=== PATIENT | male | born 1995 | race Caucasian/White ===

== ENCOUNTER 2016-05-19 13:14 | Inpatient (IN) | payer OTHER ==
[~2016-05-19] VITALS: Ht 170.2 cm; Wt 71.7 kg
--- NOTE | 2016-05-19 13:19 | NUR ---
PT [id number] FROM HOME: S/P POSSIBLE SEIZURE. NO Hx OF SEIZURES. DENIES ANY PAIN. PLACED ON MONITOR. AWAITING MD ORDER.
--- NOTE | 2016-05-19 13:19 | NUR ---
PT HAS LAC #18 ALREADY PRIOR ARRIVING AT ER
--- NOTE | 2016-05-19 13:38 | NUR ---
PT TAKEN TO CT
[2016-05-19] MEDS ORDERED: LORAZEPAM 1 MG TABLET ONE (13:56)
[2016-05-19 13:59] LABS: BASOPHILS % (AUTO) 0.2 % (0.0-2.0); EOSINOPHILS % (AUTO) 0.1 % (0.0-6.0); HEMATOCRIT 48 % (39-51); HEMOGLOBIN 16.6 g/dL (13.5-17.5); LYMPHOCYTES # (AUTO) 0.6 /CMM (0.8-4.8); LYMPHOCYTES % (AUTO) 5.5 % (20.0-44.0); MEAN CORPUSCULAR HEMOGLOBIN 30 PG (26.0-33.0); MEAN CORPUSCULAR HGB CONC 35 g/dl (31.0-36.0); MEAN CORPUSCULAR VOLUME 88 fL (80-96); MONOCYTES # (AUTO) 0.7 /CMM (0.1-1.30); NEUTROPHILS # (AUTO) 10.5 /CMM (1.8-8.9); NEUTROPHILS % (AUTO) 88.2 % (43.0-81.0); PLATELET COUNT (AUTO) 405 /CMM (150-450); RDW COEFFICIENT OF VARIATION 13.2 (11.5-15.0); WHITE BLOOD COUNT (AUTO) 11.8 K/uL (4.3-11.0)
[2016-05-19] MEDS ORDERED: LORAZEPAM 1 MG TABLET PO ONE (14:00)
--- NOTE | 2016-05-19 14:10 | NUR ---
CALLED NURSING SUP. FOR TELE BED
[2016-05-19] MEDS ORDERED: DILT30TA2 PO (14:11)
[2016-05-19 14:14] LABS: CALCIUM, SERUM 9.3 mg/dL (8.5-10.1); CARBON DIOXIDE 23 mmol/L (21-32); CHLORIDE 100 mmol/L (98-107); CREATININE 1.2 mg/dL (0.6-1.3); GFR 76 mL/min (>60); GLUCOSE 160 mg/dL (74-106); SODIUM SERUM 136 mmol/L (136-145); UREA NITROGEN, BLOOD 8 mg/dL (7-18)
[2016-05-19 14:16] LABS: ALCOHOL, BLOOD < 3 mg/dL (0-0)
[2016-05-19] MEDS ORDERED: IV SET PRIMARY PUMP SET 1 EA INFUS.SET MC ONE ×2 (14:23→17:13)
--- NOTE | 2016-05-19 14:26 | NUR ---
EPIC PAGED; DR DURBIN JUNIOR ANALYST
[2016-05-19] MEDS ORDERED: PHENYTOIN SODIUM IV 1,000 MG in IV NS 0.9% 100 ML IV ONE (14:30)
--- NOTE | 2016-05-19 15:14 | NUR ---
GAVE REPORT TO STANLEY VILLARREALFIELD SERVICE SPECIALIST [phone]
[2016-05-19] MEDS ORDERED: LEVETIRACETAM (500MG) 500 MG in IV NS 0.9% 100 ML IV SCH (15:30)
[2016-05-19] MEDS ORDERED: MORPHINE SULFATE INJ 2 MG/ML DISP.SYRIN IV PRN ×2 (15:30→15:45)
[2016-05-19] MEDS ORDERED: ACETAMINOPHEN 325 MG TABLET PO PRN ×2 (15:30→15:45)
[2016-05-19] MEDS ORDERED: MAGNESIUM HYDROXIDE 30 ML UDC PO PRN ×2 (15:30→15:45)
[2016-05-19] MEDS ORDERED: ZOLPIDEM TARTRATE 5 MG TABLET PO PRN ×2 (15:30→15:45)
[2016-05-19] MEDS ORDERED: ENOXAPARIN SODIUM 40 MG/0.4 ML DISP.SYRIN SQ SCH ×2 (15:30→15:45)
[2016-05-19] MEDS ORDERED: Z GUARD REMEDY 2 OZ OINT TP PRN ×2 (15:30→15:45)
[2016-05-19] MEDS ORDERED: HYDROCODONE/APAP 5/325MG 1 EACH TABLET PO PRN ×2 (15:30→15:45)
[2016-05-19] MEDS ORDERED: ONDANSETRON HCL/PF 4 MG/2 ML VIAL IVP PRN ×2 (15:30→15:45)
[2016-05-19] MEDS ORDERED: MAG HYDROX/AL HYDROX/SIMETH 30 ML UDC PO PRN ×2 (15:30→15:45)
--- NOTE | 2016-05-19 15:31 | NUR ---
TRANSFER PT VIA ACLS PROTOCOL. PT STABLE
--- NOTE | 2016-05-19 15:40 | NUR ---
SOLAR CONSULTANT NOTES PATIENT ADMITTED TO UNIT VIA GURNEY ALERT AND ORIENTED X 4 ACCOMPANIED BY ER STAFF AND PARENTS. PATIENT ADMIITED WITH PRIMARY DIAGNOSIS OF SEIZURE AND SIGNIFICANT DIAGNOSIS OF PALPITATION ALSO. NO KNOWN ALLERGY. TRANSFERRED PATIENT TO BED AND SEIZURE PRECAUTIONS IMPLEMENTED. ROUTINE ADMISSION DONE. ON ROOM AIR, TOLERATED WITH NO SIGNS OF SOB NOTED. SKIN ASSESSMENT DONE, PHOTOS TAKEN AND FILED TO CHART. NOTED WITH IV ACCESS TO LEFT AC G#18, INTACT AND PATENT. V/S CHECK AND WNL. BELONGINGS CHECKED, COUNTED AND FILED. CALL LIGHT KEPT WITHIN REACH, BED KEPT LOW AND LOCK WITH SIDE RAILS UP AND PADDED. ALL SAFETY MEASURES IMPLEMENTED. APPARENTLY PATIENT FORGET SOME RECENT EVENTS PER GIRLFRIEND. WILL CONTINUE TO MONITOR ACCORDINGLY.
[2016-05-19] MEDS: LEVETIRACETAM (500MG) 500 MG in IV NS 0.9% 100 ML IV SCH (17:19)
[2016-05-19] MEDS: ENOXAPARIN SODIUM 80 MG/0.8 ML DISP.SYRIN SQ SCH (17:37)
--- NOTE | 2016-05-19 19:30 | NUR ---
RN NOTES RECEIVED PT. AWAKE , SITTING ON THE EDGE OF THE BED WITH FAMILY AT BEDSIDE, A/OX4, ST ON TELE MONITOR HR-113, DENIES PAIN, NO SOB, CALL LIGHT WITHIN REACH, SIDERAILS UPX2, CONTINUE TO MONITOR
--- NOTE | 2016-05-19 19:33 | NUR ---
DENTAL ASSISTING INSTRUCTOR CLOSING NOTES PATIENT AWAKE IN BED WITH FAMILY AT BEDSIDE. ALERT AND ORIENTED X4. NO SEIZURE OR DISCOMFORTS NOTED SINCE ADMISSION. ALL DUE NEEDS AND CARE PROVIDED. DUE MEDS GIVEN ORDERED. CALL LIGHT WITHIN REACH. BED KEPT LOW. LOCKED WITH SIDE RAILS UP AND PADDED. ENDORSED TO HONEY GRADER AND BLENDER FOR CONTINUITY OF CARE. Addendum: 05/19/16 at 1944 by CHAPARRITA GRANT RN ADDENDUM: PATIENT PLACED ON TELE-MONITORING WITH READINGS OF SINUS TACHYCARDIA AND HR OF 120. NO COMPLAINTS OF PALPITATION OR CHEST PAIN VOICED. WILL CONTINUE TO MONITOR
[2016-05-19 19:34] LABS: PHENCYCLIDINE SCREEN,URINE NEGATIVE (NEGATIVE)
[2016-05-19 20:00] VITALS: BP 131/78
[2016-05-19 20:05] LABS: CANNABINOID, URINE POSITIVE (NEGATIVE)
[2016-05-20] VITALS: BP 139/88
[2016-05-20 04:00] VITALS: BP 124/79
[2016-05-20] MEDS: LEVETIRACETAM (500MG) 500 MG in IV NS 0.9% 100 ML IV SCH ×2 (05:19→17:00)
[2016-05-20] MEDS: ENOXAPARIN SODIUM 80 MG/0.8 ML DISP.SYRIN SQ SCH ×2 (05:20→17:08)
--- NOTE | 2016-05-20 06:29 | NUR ---
RN NOTES PT. IS AWAKE, DENIES PAIN, IV LINE PATENT , NO REDNESS OR SWOLLEN, NO SOB, MORNING CARE RENDERED, CALL LIGHT WITHIN REACH, SIDERAILS UPX2, PT. NEEDS ATTENDED
[2016-05-20 07:02] VITALS: BP 142/80
--- NOTE | 2016-05-20 07:15 | NUR ---
RIB PULLER INITIAL NOTES RECEIVED PATIENT IN BED, AWAKE. A/O X3. BREATHING EVEN AND NON LABORED. NO SOB NOTED. TELE MONITOR SINUS TACH. IV IN LEFT AC G20 PATENT AND INTACT, FLUSHES WELL. NO C/O PAIN AT THIS TIME. CALL LIGHT WITHIN REACH. WILL CONT TO MONITOR.
[2016-05-20] MEDS ORDERED: PANTOPRAZOLE 40 MG TABLET.DR PO SCH ×2 (07:30)
[2016-05-20 07:31] LABS: BASOPHILS % (AUTO) 0.3 % (0.0-2.0); EOSINOPHILS # (AUTO) 0.1 /CMM (0.0-0.7); EOSINOPHILS % (AUTO) 0.7 % (0.0-6.0); HEMATOCRIT 44 % (39-51); HEMOGLOBIN 15.1 g/dL (13.5-17.5); LYMPHOCYTES # (AUTO) 1.8 /CMM (0.8-4.8); LYMPHOCYTES % (AUTO) 16.3 % (20.0-44.0); MEAN CORPUSCULAR HEMOGLOBIN 30 PG (26.0-33.0); MEAN CORPUSCULAR HGB CONC 34 g/dl (31.0-36.0); MEAN CORPUSCULAR VOLUME 88 fL (80-96); MONOCYTES # (AUTO) 1.3 /CMM (0.1-1.30); MONOCYTES % (AUTO) 12.3 % (2.0-12.0); NEUTROPHILS # (AUTO) 7.6 /CMM (1.8-8.9); NEUTROPHILS % (AUTO) 70.4 % (43.0-81.0); PLATELET COUNT (AUTO) 342 /CMM (150-450); RED BLOOD CELL COUNT(AUTO) 5.02 MIL/uL (4.5-6.0); WHITE BLOOD COUNT (AUTO) 10.8 K/uL (4.3-11.0)
[2016-05-20 08:00] VITALS: BP 142/80
[2016-05-20 08:02] LABS: THYROID STIMULATING HORMONE 0.772 uIU/mL (0.358-3.74)
[2016-05-20 09:11] LABS: CREATININE 0.7 mg/dL (0.6-1.3); PHOSPHORUS 3.6 mg/dL (2.5-4.9); POTASSIUM 3.4 mmol/L (3.5-5.1)
--- NOTE | 2016-05-20 11:02 | NUR ---
PATIENT WILL BE NPO 4-6 HR FOR THE PROCEDURE-CT HEAD W CONTRAST. PATIENT IS AWARE. CONSENT SIGNED AND PLACE IN THE CHART.
[2016-05-20] MEDS ORDERED: GADOVERSETAMIDE 2.5 MMOL/5 ML VIAL IJ ONE (12:00)
[2016-05-20] MEDS ORDERED: GADOVERSETAMIDE 5 MMOL/10 ML VIAL IJ ONE (12:00)
--- NOTE | 2016-05-20 13:30 | NUR ---
PATIENT IS TAKEN TO RAD DEPT FOR MRI PROCEDURE ORDERED.
[2016-05-20 16:00] VITALS: BP 128/78
--- NOTE | 2016-05-20 16:00 | NUR ---
PATIENT IS TAKEN TO RAD DEPT FOR CT HEAD CONTRAST PROCEDURE ORDERED. CONSENT FORM IN THE CHART.
[2016-05-20] MEDS ORDERED: IOHEXOL-300 100 ML VIAL IV ONE (16:04)
[2016-05-20] MEDS ORDERED: IV NS 0.9% 250 ML IV ONE ×2 (16:04→17:28)
[2016-05-20] MEDS ORDERED: CT SWABBABLE VALVE TRANS SET 1 EA INFUS.SET MC ONE (16:04)
[2016-05-20] MEDS ORDERED: DOCUSATE SODIUM 100 MG CAPSULE PO SCH (17:00)
[2016-05-20] MEDS ORDERED: IV SET PRIMARY PUMP SET 1 EA INFUS.SET MC ONE ×2 (17:04→17:29)
--- NOTE | 2016-05-20 17:13 | NUR ---
HOME MEDICATION LISTED DILTIAZEM, REVIEWED WITH THE PATIENT, STATED HES NOT TAKING DILTIAZEM FOR LONG TIME, PER PATIENT DR. ORTEGA (PRIMARY DOCTOR) IS CARRANZA. PHARMACY INFORMED.
[2016-05-20] MEDS: POTASSIUM CL. PREMIX PERIPHER. 50 ML IV SCH ×2 (17:36→18:31)
--- NOTE | 2016-05-20 18:39 | NUR ---
MS RN CLOSING NOTES PATIENT IN BED, A/O X3 4. NO EPISODE OF SEIZURE DURING THE SHIFT. LOW POTASSIUM 3.4 SUPPLEMENTED ORDERED. NO C/O PAIN OR ANY DISCOMFORT. NOT IN DISTRESS. CALL LIGHT WITHIN REACH. WILL ENDORSE TO MAILROOM SUPERVISOR RN FOR CONTINUITY OF CARE.
--- NOTE | 2016-05-20 19:30 | NUR ---
RN NOTES RECEIVED PT AWAKE ON BED, A/OX3 FAMILY AT BEDSIDE, PT. WAS TELLING ME THAT HE IS GOING HOME TONIGHT BUT I EXPLAINED TO THE PT. THAT THERE' NO DISCHARGE ORDER YET BECAUSE THE PRIMARY DOCTOR NEEDS TO SPEAK FIRST TO DR. ELIZONDO AND DR. MERINO REGARDING PT. NEW ONSET SEIZURE BUT PT STILL INSISTING THAT HE WANTS TO GO HOME.. DAYSHIFT NURSE CAME AND ALSO EXPLAINED TO THE THE PT. THE SAME THING BUT PT DOOESN'T LISTEN TO OUR EXPLANATION
[2016-05-20 20:00] VITALS: BP 106/70
--- NOTE | 2016-05-20 20:30 | NUR ---
RN NOTES SPOKE TO SOMMER DASILVA-PABLO AND INFORMED HER THAT PT WANTS TO DO AMA EVEN THOUGH WE EXPLAINED TO HIM WELL TO HIS FAMILY NEGATIVE EFFECT OF DOING AMA
--- NOTE | 2016-05-20 20:50 | NUR ---
RN NOTES PT. LEFT WITH HIS FAMILY V/S STABLE, HEPLOCK WAS REMOVED
== END 2016-05-20 20:47 | disposition left against medical advice (07) | DRG 53 ==
LOC: ER 13:16 → TELE 16:16 → MED 05-20 10:36
PROVIDERS: ADMIT Family Medicine; ATTEND Family Medicine
DX: G40.909 Epilepsy, unspecified, not intractable, without status epilepticus (principal); D72.829 Elevated white blood cell count, unspecified; R82.99 Other abnormal findings in urine; Z87.820 Personal history of traumatic brain injury
CPT/HCPCS: 36415; 70450-TC; 70460-TC; 70553-TC; 80048-TC; 80305; 83735-TC; 84100-TC; 84443-TC; 85025-TC; 85378-TC; 87081-TC; A4606; A9579; G0480; J1165; J1650; J1953; J3480; J7030; J7050; Q9967; Z7610

== ENCOUNTER 2019-02-01 22:49 | Emergency (ER) | payer BC, OTHER ==
[~2019-02-01] VITALS: Ht 170.2 cm; Wt 74.8 kg
[~2019-02-01 22:49] MED LIST: DILT30TA2 PO
--- NOTE | 2019-02-01 23:05 | NUR ---
QAMAR FROM HOME. TO ER BED 11. AAOX4. NO RESP DISTRESS, BREATHING EVENA ND UNLABORED. BROUGHT IN FOR OVERDOSE. PER EMS REPORT, PT WAS FOUNF UNCONSCIOUS AT HOME. PT REPORTS THAT HE TOOK HEROIN TONIGHT. EMS GAVE PT NARCAN 2MG IM ON SCENE WHICK AWAKEN THE PT. PT OK SAT 98%. MD WAS AT BEDSIDE FOR EVAL.
[2019-02-01] MEDS ORDERED: IBUPROFEN 600 MG TABLET PO ONE (23:45)
[2019-02-01] MEDS ORDERED: ONDANSETRON 4 MG TAB.RAPDIS ONE (23:48)
--- NOTE | 2019-02-01 23:49 | NUR ---
PT C/O NAUSEA AND ABDOMINAL PAIN ON LUQ. MD MADE AWARE. VERBAL ORDER TO GIVE IBUPROPHEN 600MG PO X 1 DOSE AND ZOFRAN 4MG PO X 1 DOSE. NOTED AND CARRIED OUT
[2019-02-02] MEDS ORDERED: IBUPROFEN 600 MG TABLET PO ONE
[2019-02-02] MEDS ORDERED: ONDANSETRON 4 MG TAB.RAPDIS SL ONE
--- NOTE | 2019-02-02 00:26 | NUR ---
Patient discharged to home in stable condition. Written and verbal after care instructions given. Patient verbalizes understanding of instruction.IV removed. Catheter intact and site benign. Pressure and 4x4 applied to site. No bleeding noted. Pt ambulatory with a steady gait
[2019-02-02 00:27] VITALS: BP 136/90
== END 2019-02-02 00:27 | disposition home or self-care (01) ==
LOC: ER 22:50
DX: T40.1X1A Poisoning by heroin, accidental (unintentional), initial encounter (principal); Z79.899 Other long term (current) drug therapy; Y92.89 Other specified places as the place of occurrence of the external cause
CPT/HCPCS: 99283; Q0162

== ENCOUNTER 2019-02-12 00:32 | Emergency (ER) | payer OTHER ==
[~2019-02-12] VITALS: Ht 170.2 cm; Wt 77.1 kg
[2019-02-12 00:32] VITALS: BP 133/79
--- NOTE | 2019-02-12 00:35 | NUR ---
PT BIB EMS C/O HEROIN OVERDOSE. PT WAS GIVEN NARCAN 0.5MG BY EMS CURTAIN DRIER. PT AAOX4. PER EMS PT RESP 6/MIN. NAD NOTED. RESP EVEN AND UNLABORED. PT DENIES ANY PAIN AT THIS TIME. PT ON MONITOR IN BED 4 AWAITING MD WYNN. WILL CONTINUE TO MONITOR.
--- NOTE | 2019-02-12 00:36 | NUR ---
PT DENIES SI, HI
--- NOTE | 2019-02-12 00:49 | NUR ---
PT WAS CLEARED FOR D/C PER
--- NOTE | 2019-02-12 01:40 | NUR ---
PT FAMILY HERE TO MERCHANDISE DELIVERER PT
== END 2019-02-12 01:51 | disposition home or self-care (01) ==
LOC: ER 00:32
DX: T40.1X1A Poisoning by heroin, accidental (unintentional), initial encounter (principal); Z79.899 Other long term (current) drug therapy; Y92.89 Other specified places as the place of occurrence of the external cause